=== PATIENT | female | born 1960 | race African-American/Black ===

== ENCOUNTER 2024-07-08 16:32 | Emergency (ER) | payer MEDICAID ==
[~2024-07-08] VITALS: Ht 154.9 cm; Wt 40.8 kg
[2024-07-08 16:38] VITALS: BP 153/88; PULSE 90; RESP 15; O2SAT 98
[2024-07-08 17:34] LABS: BASOPHILS % (AUTO) 0.5 % (0-1); EOSINOPHILS # (AUTO) 0.3 X10'3 (0-0.9); EOSINOPHILS % (AUTO) 7.1 % (0-6); HEMATOCRIT 35.4 % (35.0-45.0); HEMOGLOBIN 11.6 g/dl (12.0-16.0); LYMPHOCYTES # (AUTO) 1.4 X10'3 (1.1-4.8); LYMPHOCYTES % (AUTO) 31.4 % (21-51); MEAN CORPUSCULAR HEMOGLOBIN 26.6 PG (27.0-31.0); MEAN CORPUSCULAR HGB CONC 32.9 g/dL (33.0-36.5); MEAN CORPUSCULAR VOLUME 81.1 FL (78-98); MEAN PLATELET VOLUME 7.6 FL (7.4-10.4); MONOCYTES # (AUTO) 0.4 X10'3 (0-0.9); NEUTROPHILS # (AUTO) 2.5 X10'3 (1.8-7.7); PLATELET COUNT 282 X10'3 (140-440); RED BLOOD COUNT 4.37 X10'6 (4.20-5.60); RED CELL DISTRIBUTION WIDTH 14.2 % (11.5-14.5); WHITE BLOOD COUNT 4.6 X10'3 (4.5-11.0)
[2024-07-08 17:48] LABS: ALANINE AMINOTRANSFERASE 18 U/L (12-78); ALBUMIN/GLOBULIN RATIO 0.7 (1.1-1.5); ALKALINE PHOSPHATASE 136 IU/L (46-116); ANION GAP 7 (8-16); ASPARTATE AMINO TRANSFERASE 17 U/L (10-37); BILIRUBIN,TOTAL 0.2 MG/DL (0.1-1.0); BLOOD UREA NITROGEN 11 MG/DL (7-18); CALCIUM 8.7 MG/DL (8.5-10.1); CHLORIDE 105 MMOL/L (99-107); CREATININE 0.61 MG/DL (0.40-0.90); GLUCOSE 144 MG/DL (70-104); POTASSIUM 3.4 MMOL/L (3.5-5.1); SODIUM 143 MMOL/L (135-145); TOTAL CARBON DIOXIDE 31.3 MMOL/L (24-32); TOTAL PROTEIN 7.6 G/DL (6.4-8.2); eCRCL 60 ML/MIN; eGFR > 90 ML/MIN
[2024-07-08] MEDS ORDERED: iohexol 300mg/ml 100ml inj. ONE (18:00)
[2024-07-08 20:26] VITALS: TEMP 98.6
== END 2024-07-08 20:27 | disposition home or self-care (01) ==
LOC: ER 16:34
DX: R22.0 Localized swelling, mass and lump, head (principal)
CPT/HCPCS: 36415; 70482; 80053; 85025; 99285; Q9967

== ENCOUNTER 2024-08-09 19:48 | Emergency (ER) | payer MEDICAID ==
[~2024-08-09] VITALS: Ht 154.9 cm; Wt 37.9 kg
[2024-08-09 19:54] VITALS: BP 115/65; PULSE 90; RESP 15; TEMP 98.5; O2SAT 100
--- NOTE | 2024-08-09 20:07 | Physician Documentation ---
History of Present Illness ~ Stated Complaint: EAR DISCHARGE Time Seen by MD: 19:59 HPI Patient presents to the emergency room requesting a culture for left ear. She has been established with the ENT doctor and had a recent surgery to her left ear and has been having some drainage and was instructed by the ENT doctor to go to the emergency room and have a culture performed. Prescription for clindamycin already ordered however the doctor wants her to have the culture taken before starting the clindamycin. No fevers Medication Reconciliation Allergies: Coded Allergies: No Known Allergies (Unverified , 08/09/24) Review of Systems ROS All review of systems negative except as per HPI Physical Exam Physical Exam General: Patient is awake, alert, oriented x4 in no acute distress Head: Normocephalic and atraumatic. Eyes: Conjunctival normal. EOMI. PERRL. ENT: Mucous membranes moist. Some drainage from external auditory meatus Medical Decision Making Findings Patient presents to the emergency room requesting culture as per HPI. Differentials include but are not limited to otitis externa, otitis interna, mastoiditis. As patient is already established with the ENT is placing her on antibiotics for which he has a prescription for I do not feel emergent labs or imaging is necessary in the light of stable vitals. ER precautions discussed. We will take a culture and I have instructed patient to call on Wednesday to see if the results have occurred. ER precautions discussed Departure Disposition: HOME / SELF CARE / HOMELESS Impression: Primary Impression: Drainage from ear, left Condition: Stable Discharge Instructions: Ear Drainage, [id number] Additional Instructions: Call Wednesday in regards to results of culture. Return for worsening of symptoms. Referrals: NO PRIMARY CARE PROVIDER (PCP) Education Educated: Patient, Family Educated regarding: need for follow up Signature Scribe Signature: No scribe Attestation: The note accurately reflects work and decisions made by me.Víctor Mckeon MD 08/09/24 20:06 VÍCTRO MCKEON MD August 09, 2024 20:07
== END 2024-08-09 20:10 | disposition home or self-care (01) ==
LOC: ER 19:49
DX: H92.12 Otorrhea, left ear (principal)
CPT/HCPCS: 87070; 87077; 87186; 99281; 99283

== ENCOUNTER 2024-11-12 09:04 | Emergency (ER) | payer MEDICAID ==
[~2024-11-12] VITALS: Ht 154.9 cm; Wt 44.5 kg
--- NOTE | 2024-11-12 10:08 | Physician Documentation ---
History of Present Illness Chief Complaint: Abdominal Pain Stated Complaint: ABD PAIN Time Seen by MD: 09:17 Source: family Mode of Arrival: POV Exam Limitations: no limitations HPI Patient who is from [facility] who does not speak [place]ian with daughter at bedside. Daughter is a PA in oncology. 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 She presents with 2 weeks of mid to upper abdominal pain that is 3/10 and soft stools for 2 weeks. No vomiting. A few months ago she did have some fat removed from the lower abdomen to replace in her ear. Outside of that she has had 2 C sections. No dysuria. No blood in her stool. Medication Reconciliation Allergies: Coded Allergies: No Known Allergies (Unverified , 11/12/24) Review of Systems All Other Systems at this time: Reviewed and Negative Physical Exam Vital Signs: Temperature: 97.7, Source: Temporal, Heart Rate: 76, Respiratory Rate: 16, BP: 149/93, Pulse Oximetry: 99, Weight: 44.550 General Appearance: alert, no apparent distress Respiratory: no respiratory distress Chest: no accessory muscle use Gastrointestinal: normal palpation, other (Trace tenderness in the epigastric region) Extremities: normal range of motion, non-tender, no edema Neurologic: oriented x4 Psychiatric: normal mood/affect Skin: normal color, warm/dry Progress Results/Orders Results/Orders Orders - CAROLIN SIERRA MD Cbc/Diff (11/12/24 09:17) Lipase (11/12/24 09:17) Urinalysis, Cult If Indicated (11/12/24 09:17) CMP (11/12/24 09:18) C Diff Toxin (11/12/24 09:19) Normal Saline 1,000ml Iv Bolus (11/12/24 10:05) Vital Signs 11/12/24 09:11 Temp 97.7 Pulse 76 Resp 16 B/P (MAP) 149/93 Pulse Ox 99 Medical Decision Making Additional Comments Patient in with abdominal pain over the past couple of weeks and soft stools. Labs unremarkable including CBC, chemistry and urinalysis. CT scan shows proctitis. Discussed with her daughter at length. Considered antibiotics and follow up colonoscopy however we decided that she was recently on a long course of antibiotics that we would skipped those for now. She will follow up with her PCP early next week to get referral for colonoscopy. Unable to give a stool sample in the ER. Discharging home in good condition. She is to return here if new or worsening symptoms prior to follow up. Departure Impression: Primary Impression: Proctitis Discharge Instructions: Proctitis Additional Instructions: Follow up with your doctor to get a referral for a colonoscopy. Return here if new or worsening symptoms prior to follow up. Referrals: NO PRIMARY CARE PROVIDER (PCP) Education Educated: Family Educated regarding: diagnosis, treatment, need for follow up Signature Scribe Signature: No scribe Attestation: No rafiibCAROLIN Jaimes MD Nov 12, 2024 10:08
[2024-11-12 10:23] LABS: MEAN PLATELET VOLUME 8.1 FL (7.4-10.4); RED CELL DISTRIBUTION WIDTH 18.7 % (11.5-14.5)
[2024-11-12 10:26] LABS: LEUKOCYTE ESTERASE ,URINE NEGATIVE (Neg); NITRITES, URINE NEGATIVE (Neg); OCCULT BLOOD,URINE NEGATIVE (Neg)
[2024-11-12 10:30] LABS: UA COLLECTION TYPE VOIDED
[2024-11-12 10:37] LABS: PLATELET ESTIMATE NORMAL
[2024-11-12 11:02] LABS: CREATININE 0.51 MG/DL (0.40-0.90); TOTAL CARBON DIOXIDE 25.9 MMOL/L (24-32); eCRCL 78 ML/MIN; eGFR > 90 ML/MIN
[2024-11-12] MEDS: normal saline 1000ml 1,000 ML IV ONE (11:10)
[2024-11-12] MEDS ORDERED: iohexol 300mg/ml 100ml inj. ONE (12:16)
--- NOTE | 2024-11-12 12:55 | RADIOLOGY REPORT ---
CLINICAL HISTORY: mid abdo pain and diarrhea x 2 weeks TECHNIQUE: CT of the abdomen and pelvis was performed with IV contrast. This exam was performed accor ding to our departmental dose optimization program. Up-to-date CT equipment and radiation dose reduct ion techniques are utilized as appropriate. CTDI 3.9 DLP 170.5 COMPARISON: None FINDINGS: Abdomen/Pelvis: The spleen, pancreas, adrenal glands, gallbladder, kidneys, and uterus are unremarkable. The RFQ small liver cysts. The bladder is not well distended and therefore not well evaluated. The abdominal aorta is normal in course and caliber. There are no significant atherosclerotic calcifi cations. There is no free intraperitoneal air. There is miniscule scattered free fluid in the peritoneal cavit y. There is no enlarged abdominal or pelvic lymph node. There is no small bowel wall thickening or dilatation. The appendix is not seen. There is no focal in flammatory process and it's expected location. There is [id number] rectal wall thickening. Other: The imaged lower thorax demonstrates mild at elected changes at both lung bases.. No acute osseous abnormality is evident. IMPRESSION: [id number] rectal wall thickening, most compatible with proctitis.
[2024-11-12 13:49] VITALS: BP 145/89; PULSE 74; RESP 18; TEMP 97.7; O2SAT 100
== END 2024-11-12 14:00 | disposition home or self-care (01) ==
LOC: ER 09:04
DX: K62.89 Other specified diseases of anus and rectum (principal)
CPT/HCPCS: 36415; 74177; 80053; 81003; 83690; 85008; 85025; 99285; J7030; Q9967; A6258; A6449